=== PATIENT | male | born 1950 | race Caucasian/White ===

== ENCOUNTER 2016-11-11 07:45 | Inpatient (IN) | payer MEDICARE ==
[~2016-11-11] VITALS: Ht 175.3 cm; Wt 98.4 kg
[2016-11-11] MEDS ORDERED: Tubing IV Cassette IV ONE (08:04)
[2016-11-11 08:11] LABS: EOSINOPHILS % (AUTO) 6.5 % (0.0-3.0); LYMPHOCYTES % (AUTO) 20.5 % (20.0-45.0); MEAN CORPUSCULAR HEMOGLOBIN 30.8 PG (27.0-31.0); MEAN CORPUSCULAR HGB CONC 32.5 G/DL (32.0-36.0); MEAN CORPUSCULAR VOLUME 95 FL (80-99); MEAN PLATELET VOLUME 9.5 FL (6.5-10.1); MONOCYTES % (AUTO) 12.5 % (1.0-10.0); NEUTROPHILS % (AUTO) 59.6 % (45.0-75.0); PLATELET COUNT 153 K/UL (150-450); RED BLOOD COUNT 4.78 M/UL (4.70-6.10); RED CELL DISTRIBUTION WIDTH 13.3 % (11.6-14.8); WHITE BLOOD COUNT 7.1 K/UL (4.8-10.8)
[2016-11-11] MEDS ORDERED: Meclizine 25mg tab ORAL ONE (08:15)
[2016-11-11 08:19] LABS: ALANINE AMINOTRANSFERASE 19 U/L (3-41); ANION GAP 17 (5-15); ASPARTATE AMINO TRANSFERASE 18 U/L (5-40); CALCIUM 8.7 mg/dL (8.6-10.2); CARBON DIOXIDE 22 mEQ/L (20-30); CHLORIDE 99 mEQ/L (98-107); GLOMERULAR FILTRATION RATE > 60 mL/min (>60); HEMOLYSIS 2; POTASSIUM 3.8 mEQ/L (3.4-4.9); SODIUM 138 mEQ/L (135-145); TOTAL PROTEIN 6.8 g/dL (6.6-8.7); TROPONIN I < 0.30 ng/mL (<=0.30)
[2016-11-11 08:30] LABS: CKMB < 1.5 ng/mL (< 6.7)
[2016-11-11] MEDS ORDERED: UNOBMED (08:52)
--- NOTE | 2016-11-11 08:52 | Emergency Room Report ---
History of Present Illness General Chief Complaint: Syncope Source: Patient Present Illness HPI 65-year-old male presents to ED complaining of dizziness and syncopal episode. 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 Patient is unsure if he actually passed out. No reported head trauma. Patient notes rash to his arms and legs which is currently being treated by his PMD. Patient was started on new medication a few days ago. Patient does not know the names of the medication. Patient denies any headaches, blurry vision, nausea or vomiting. Chest pain or shortness of breath. Describes room spinning sensation. Per EMS patient is "orthostatic" with drop and BP from sitting to standing. Denies any other associated symptoms Allergies: Coded Allergies: SILVER SULFADIAZINE (Verified Allergy, Unknown, 11/11/16) Patient History Past Medical History: asthma Past Surgical History: none Pertinent Family History: none Social History: Denies: alcohol use, drug use, smoking Immunizations: UTD Reviewed Nursing Documentation: PMH: Agreed, PSxH: Agreed Nursing Documentation-PMH Past Medical History: No History, Except For Hx Asthma: Yes Review of Systems All Other Systems: negative except mentioned in HPI Physical Exam Vital Signs Date Time Temp Pulse Resp B/P Pulse Ox O2 Delivery O2 Flow Rate FiO2 11/11/16 07:48 98.2 75 18 115/87 97 Room Air Sp02 EP Interpretation: reviewed, normal General Appearance: no apparent distress, alert, GCS 15, non-toxic Head: normocephalic, atraumatic Eyes: bilateral eye PERRL, bilateral eye normal inspection ENT: hearing grossly normal, normal pharynx, no angioedema, normal voice Neck: full range of motion, supple/symm/no masses Respiratory: chest non-tender, lungs clear, normal breath sounds, speaking full sentences Cardiovascular #1: regular rate, rhythm, no edema Cardiovascular #2: 2+ carotid (R), 2+ carotid (L), 2+ radial (R), 2+ radial (L) , 2+ dorsalis pedis (R), 2+ dorsalis pedis (L) Gastrointestinal: normal bowel sounds, non tender, soft, non-distended, no guarding, no rebound Rectal: deferred Genitourinary: normal inspection, no CVA tenderness Musculoskeletal: back normal, gait/station normal, normal range of motion, non- tender Neurologic: alert, oriented x3, responsive, motor strength/tone normal, sensory intact, speech normal Psychiatric: judgement/insight normal, memory normal, mood/affect normal, no suicidal/homicidal ideation Reflexes: 3+ bicep (R), 3+ bicep (L), 3+ tricep (R), 3+ tricep (L), 3+ knee (R) , 3+ knee (L) Skin: normal color, no rash, warm/dry, well hydrated Lymphatic: no adenopathy Medical Decision Making Diagnostic Impression: Primary Impression: Syncope Qualified Codes: R55 - Syncope and collapse ER Course Hospital Course 65-year-old M presents ED s/p syncopal episode. Feeling dizzy Differential diagnoses include: NH/unstable angina, arrythmia, dehydration, CVA/ TIA Clinical course Patient placed on stretcher. on property assessment monitor. After initial history and physical I ordered labs, EKG, chest x-ray, IVFs, CT Brain, meclizine labs reviewed- no leukocytosis, hemoglobin/hematocrit ok, electrolytes okay, troponins negative EKG- NSR, no acute changes Chest x-ray- no acute process CT brain-unremarkable Patient given meclizine IV fluids with some improvement however remains dizzy with unsteady gait I reviewed patient's external that history. Patient had been recently prescribed Atarax and Benadryl for a rash. Unclear whether patient is taking both medications at this time because he does not know the names of the medications. Could be polypharmacy. Case discussed with Dr. Vasquez and he agreed to accept the patient to his service for further care and support I. I feel this is a highly complex case requiring extensive working including EKG/Rhythm strip, Xray/CT/US, Blood/urine lab work, repeat exams while in ED, and administration of strong opiates/narcotics for pain control, admission to hospital or close patient follow up. Diagnosis - syncope admitted to telemetry in serious condition Labs Test 11/11/16 07:50 White Blood Count 7.1 K/UL (4.8-10.8) Red Blood Count 4.78 M/UL (4.70-6.10) Hemoglobin 14.7 G/DL (14.2-18.0) Hematocrit 45.2 % (42.0-52.0) Mean Corpuscular Volume 95 FL (80-99) Mean Corpuscular Hemoglobin 30.8 PG (27.0-31.0) Mean Corpuscular Hemoglobin Concent 32.5 G/DL (32.0-36.0) Red Cell Distribution Width 13.3 % (11.6-14.8) Platelet Count 153 K/UL (150-450) Mean Platelet Volume 9.5 FL (6.5-10.1) Neutrophils (%) (Auto) 59.6 % (45.0-75.0) Lymphocytes (%) (Auto) 20.5 % (20.0-45.0) Monocytes (%) (Auto) 12.5 % (1.0-10.0) Eosinophils (%) (Auto) 6.5 % (0.0-3.0) Basophils (%) (Auto) 1.0 % (0.0-2.0) Sodium Level 138 mEQ/L (135-145) Potassium Level 3.8 mEQ/L (3.4-4.9) Chloride Level 99 mEQ/L (98-107) Carbon Dioxide Level 22 mEQ/L (20-30) Anion Gap 17 (5-15) Blood Urea Nitrogen 12 mg/dL (7-23) Creatinine 1.0 mg/dL (0.7-1.2) Estimat Glomerular Filtration Rate > 60 mL/min (>60) Glucose Level 175 mg/dL (74-106) Calcium Level 8.7 mg/dL (8.6-10.2) Total Bilirubin 0.5 mg/dL (0.0-1.2) Aspartate Amino Transf (AST/SGOT) 18 U/L (5-40) Alanine Aminotransferase (ALT/SGPT) 19 U/L (3-41) Alkaline Phosphatase 64 U/L (40-129) Total Creatine Kinase 81 U/L (38-174) Creatine Kinase MB < 1.5 ng/mL (< 6.7) Creatine Kinase MB Relative Index Troponin I < 0.30 ng/mL (<=0.30) Pro-B-Type Natriuretic Peptide 157 pg/mL (0-125) Total Protein 6.8 g/dL (6.6-8.7) Albumin 3.5 g/dL (3.5-5.2) Globulin 3.3 g/dL Albumin/Globulin Ratio 1.0 (1.0-2.7) EKG Diagnostic Results Rate: normal Rhythm: NSR ST Segments: no acute changes ASA given to the pt in ED: No Rhythm Strip Diag. Results EP Interpretation: yes Rhythm: NSR, no PVC's, no ectopy Chest X-Ray Diagnostic Results EP Interpretation: Yes Findings: no consolidation, no effusion, no pneumothorax, no acute cardiopulmonary disease Number of Views: 1 CT/MRI/US Diagnostic Results CT/MRI/US Diagnostic Results : Imaging Test Ordered: CT head Impression no acute process Last Vital Signs Date Time Temp Pulse Resp B/P Pulse Ox O2 Delivery O2 Flow Rate FiO2 11/11/16 07:48 98.2 75 18 115/87 97 Room Air Status: improved Disposition: ADMITTED INPATIENT Condition: Serious Referrals: NOT CHOSEN ROGE/,REFERRING (PCP) IRVING MAO M.D. Nov 11, 2016 08:52
[2016-11-11 09:00] VITALS: BP 105/66
--- NOTE | 2016-11-11 10:20 | Diagnostic Imaging Report ---
Indication: Dizziness Technique: Contiguous 5 mm thick transaxial imaging of the head obtained in a Siemens Sensation [address] scanner. Soft tissue and bone windows generated. Total Dose length Product (DLP): [address] Dose Index Volume (CTDIvol): 70.38 mGy Comparison: none Findings: There is mild prominence of the ventricles, basal cisterns, and cerebral sulci consistent with atrophy. Mild, nonspecific, white matter hypoattenuation is noted throughout the brain consistent with chronic small vessel disease. There is no midline shift, edema, acute hemorrhage, mass effect, or abnormal extra-axial fluid collections. Bones and extra osseous soft tissues are unremarkable. There is minimal mucosal thickening demonstrated within the ethmoid sinus consistent with sinusitis. Impression: No acute intracranial bleed, mass effect or edema. Mild atrophy of the brain. Nonspecific white matter hypoattenuation probably due to chronic small vessel disease. Sinusitis The CT scanner at [facility] is accredited by the [employer] and the scans are performed using protocols designed to limit radiation exposure to as low as reasonably achievable to attain images of sufficient resolution adequate for diagnostic evaluation.
[2016-11-11 11:28] VITALS: BP 143/89
--- NOTE | 2016-11-11 11:59 | Diagnostic Imaging Report ---
Indication: Chest Pain Comparison: None A single view chest radiograph was obtained. Findings: No definite infiltrate or pulmonary vascular congestion identified. The heart is enlarged. There is minimal basilar atelectasis. The aorta is mildly enlarged consistent with atherosclerotic vascular disease. The bones are osteopenic. Impression: No acute disease
[2016-11-11] MEDS ORDERED: BENADRYL25 M3 PO (12:57)
[2016-11-11] MEDS ORDERED: OMEPRAZOLE40 M1 ORAL (12:57)
[2016-11-11] MEDS ORDERED: CEPHALEXIN500 MG ORAL (12:57)
[2016-11-11] MEDS ORDERED: MONTELUKAST SOD10 MG ORAL (12:57)
[2016-11-11] MEDS ORDERED: Mylanta II UD 30ml ORAL PRN (15:00)
[2016-11-11] MEDS ORDERED: LORazepam Inj 2mg/ml 1ml IV PRN (15:00)
[2016-11-11] MEDS ORDERED: Miralax 17gm pkt ORAL PRN (15:00)
[2016-11-11] MEDS ORDERED: Nitroglycerin Subl 0.4mg tab (Bottle Of 25) SL PRN (15:00)
[2016-11-11] MEDS ORDERED: Morphine Sulfate 2mg/ml Inj IVP PRN (15:00)
[2016-11-11 16:00] VITALS: BP 124/78
[2016-11-11 20:00] VITALS: BP 114/74
[2016-11-11] MEDS: DuoNeb 0.5-3(2.5)mg/3ml neb HHN PRN (20:02)
--- NOTE | 2016-11-11 21:04 | Cardiology Progress Note ---
Assessment/Plan Assessment/Plan [id number] Objective Last 24 Hour Vital Signs Date Time Temp Pulse Resp B/P Pulse Ox O2 Delivery O2 Flow Rate FiO2 11/11/16 20:13 78 18 98 Room Air 21 11/11/16 20:03 74 20 Room Air 21 11/11/16 20:03 21 11/11/16 20:02 74 20 95 Room Air 21 11/11/16 20:00 97.1 85 21 114/74 97 Room Air 11/11/16 16:00 97.1 80 20 124/78 95 11/11/16 12:00 75 11/11/16 11:28 96.5 80 18 143/89 97 Room Air 11/11/16 11:02 98.2 79 18 105/66 100 Room Air 11/11/16 09:00 79 18 105/66 100 Room Air 11/11/16 07:48 98.2 75 18 115/87 97 Room Air Laboratory Tests Test 11/11/16 07:50 White Blood Count 7.1 K/UL (4.8-10.8) Red Blood Count 4.78 M/UL (4.70-6.10) Hemoglobin 14.7 G/DL (14.2-18.0) Hematocrit 45.2 % (42.0-52.0) Mean Corpuscular Volume 95 FL (80-99) Mean Corpuscular Hemoglobin 30.8 PG (27.0-31.0) Mean Corpuscular Hemoglobin Concent 32.5 G/DL (32.0-36.0) Red Cell Distribution Width 13.3 % (11.6-14.8) Platelet Count 153 K/UL (150-450) Mean Platelet Volume 9.5 FL (6.5-10.1) Neutrophils (%) (Auto) 59.6 % (45.0-75.0) Lymphocytes (%) (Auto) 20.5 % (20.0-45.0) Monocytes (%) (Auto) 12.5 % (1.0-10.0) H Eosinophils (%) (Auto) 6.5 % (0.0-3.0) H Basophils (%) (Auto) 1.0 % (0.0-2.0) Sodium Level 138 mEQ/L (135-145) Potassium Level 3.8 mEQ/L (3.4-4.9) Chloride Level 99 mEQ/L (98-107) Carbon Dioxide Level 22 mEQ/L (20-30) Anion Gap 17 (5-15) H Blood Urea Nitrogen 12 mg/dL (7-23) Creatinine 1.0 mg/dL (0.7-1.2) Estimat Glomerular Filtration Rate > 60 mL/min (>60) Glucose Level 175 mg/dL (74-106) H Calcium Level 8.7 mg/dL (8.6-10.2) Total Bilirubin 0.5 mg/dL (0.0-1.2) Aspartate Amino Transf (AST/SGOT) 18 U/L (5-40) Alanine Aminotransferase (ALT/SGPT) 19 U/L (3-41) Alkaline Phosphatase 64 U/L (40-129) Total Creatine Kinase 81 U/L (38-174) Creatine Kinase MB < 1.5 ng/mL (< 6.7) Creatine Kinase MB Relative Index Troponin I < 0.30 ng/mL (<=0.30) Pro-B-Type Natriuretic Peptide 157 pg/mL (0-125) H Total Protein 6.8 g/dL (6.6-8.7) Albumin 3.5 g/dL (3.5-5.2) Globulin 3.3 g/dL Albumin/Globulin Ratio 1.0 (1.0-2.7) RARON MCFARLAND Nov 11, 2016 21:04
[2016-11-11] MEDS: Heparin 5000 units/ml inj SUBQ SCH (21:17)
[2016-11-12] VITALS: BP 134/82
[2016-11-12 04:00] VITALS: BP 134/88
--- NOTE | 2016-11-12 05:48 | Consultation ---
DATE OF CONSULTATION: 11/11/2016 REFERRING PHYSICIAN: Alejandra Vasquez M.D. REASON FOR CONSULT: Syncope. HISTORY OF PRESENT ILLNESS: This is a 65-year-old gentleman, who has had a history of rash for approximately three weeks. He has been evaluated by his primary care doctor and allergic reaction has been felt to be a possibility. The patient wants to make an appointment with Dermatology and received some allergy medication including Solu-Medrol, and was recently as of this morning started on three new medications. Apparently, at work today, he started feeling heat from the inside, sat down and felt like he was going to pass out. He found that he had loss of some consciousness and was apparently told that he was shaking. Paramedics were summoned, took the patient to the emergency room. When he stood up, he was wobbly. The patient was brought to the emergency room here. He does not have any chest pain. He does not have any shortness of breath. No PND. No orthopnea. No palpitations. He really does not feel dizzy or lightheaded when he sits up, except for that episode today. He has not had any diarrhea. No bloody stools or black tarry stools. PAST MEDICAL HISTORY: Positive for possibly some high cholesterol. He has a history of asthma. No heart attack. No cancer. No stroke. No hepatitis or tuberculosis. No kidney problems, liver problems, thyroid problems, anemia, or arthritis. ALLERGIES: He is allergic to several medications including silver sulfadiazine. SOCIAL HISTORY: He does not smoke or drink alcoholic beverages. 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 REVIEW OF SYSTEMS: Gastrointestinal: He has had occasional diarrhea and occasional constipation. None recently. No bloody stools or black tarry stools. Genitourinary: Negative. Pulmonary: Has coughing or wheezing. Constitutional: Negative. Neurologic: Negative. PHYSICAL EXAMINATION: VITAL SIGNS: On arrival to the emergency room, blood pressure 115/87, and his blood pressure most recently 114/74, temperature 97.1 degrees and respirations of 85. GENERAL: Shows him to be an elderly gentleman, in no apparent respiratory distress. NECK: Supple. No jugular venous distention. LUNGS: Clear to auscultation and percussion except for some end-expiratory wheezes. CARDIAC: Regular rate and rhythm. No heaves, thrills, gallops, or rubs. ABDOMEN: Soft and nontender. Positive bowel sounds. EXTREMITIES: There is no edema. He has a maculopapular rash on his upper extremities and lower extremities, erythematous base. LABORATORY AND DIAGNOSTIC DATA: A head CT was performed in the emergency room that shows no acute intracranial mass effect, mild atrophy, nonspecific white matter, and sinusitis. Chest x-ray performed in the emergency room shows no acute disease. Laboratories, sodium is 138, potassium 3.8, chloride 99, bicarbonate 22, BUN 12, creatinine 1.2, and glucose of 175. Troponin is less than 0.3. ProBNP is only 157. Liver function tests are otherwise unremarkable. Electrocardiogram normal sinus rhythm. ASSESSMENT AND PLAN: 1. Syncope. 2. Dermatitis. 3. Asthma history. This patient was seen in cardiac consultation. The etiology of syncope is not yet apparent. The patient will have orthostatic vitals checked. He will have laboratories followed up. Intravenous fluids will be administered in terms of normal saline. He has been started on three new medications, the name of which he is not sure about. He will try to obtain the medication list from his car to see if that may be a contributing factor to his symptoms of syncope or near syncope. Further, an echocardiogram, serial enzymes and EKG will be obtained as well. Fidel Mehta M.D. DR: LAURYN JOB#: [id number] CC:
[2016-11-12 08:07] VITALS: BP 123/88
[2016-11-12 08:21] LABS: BASOPHILS % (AUTO) 1.1 % (0.0-2.0); EOSINOPHILS % (AUTO) 8.3 % (0.0-3.0); LYMPHOCYTES % (AUTO) 22.3 % (20.0-45.0); MEAN CORPUSCULAR HEMOGLOBIN 31.3 PG (27.0-31.0); MEAN CORPUSCULAR HGB CONC 32.8 G/DL (32.0-36.0); MEAN CORPUSCULAR VOLUME 95 FL (80-99); MEAN PLATELET VOLUME 8.3 FL (6.5-10.1); MONOCYTES % (AUTO) 11.6 % (1.0-10.0); NEUTROPHILS % (AUTO) 56.7 % (45.0-75.0); PLATELET COUNT 137 K/UL (150-450); RED BLOOD COUNT 4.66 M/UL (4.70-6.10); RED CELL DISTRIBUTION WIDTH 13.5 % (11.6-14.8); WHITE BLOOD COUNT 4.8 K/UL (4.8-10.8)
[2016-11-12 08:29] LABS: PROTHROMBIN TIME 10.5 SEC (9.30-11.50)
[2016-11-12 08:47] LABS: TROPONIN I < 0.30 ng/mL (<=0.30)
[2016-11-12 08:54] LABS: ALANINE AMINOTRANSFERASE 21 U/L (3-41); ALBUMIN/GLOBULIN RATIO 1.1 (1.0-2.7); ANION GAP 16 (5-15); ASPARTATE AMINO TRANSFERASE 20 U/L (5-40); CALCIUM 8.6 mg/dL (8.6-10.2); CARBON DIOXIDE 23 mEQ/L (20-30); CHLORIDE 102 mEQ/L (98-107); CHOLESTEROL 200 mg/dL (< 200); CHOLESTEROL/HDL RATIO 6.5 (3.3-4.4); CREATININE 0.8 mg/dL (0.7-1.2); GLOMERULAR FILTRATION RATE > 60 mL/min (>60); HEMOLYSIS 4; LDL CHOLESTEROL (CALC.) 145 mg/dL (60-99); POTASSIUM 4.1 mEQ/L (3.4-4.9); SODIUM 141 mEQ/L (135-145); TOTAL PROTEIN 6.4 g/dL (6.6-8.7)
[2016-11-12] MEDS: Heparin 5000 units/ml inj SUBQ SCH ×2 (09:21→21:00)
--- NOTE | 2016-11-12 11:10 | Cardiology Progress Note ---
Assessment/Plan Assessment/Plan 1. Syncope. 2. Dermatitis. 3. Asthma history 4. mild abn ekg orthostic vialt neg per turner in neg trop neg ekg with t inversion in some lead will have stress test prio to dc pt agreeable would do excrcise cardiolite echo pending Subjective Cardiovascular: Denies: chest pain, lightheadedness Respiratory: Denies: shortness of breath Gastrointestinal/Abdominal: Denies: abdominal pain Genitourinary: Denies: burning Subjective walked to br no problems Objective Last 24 Hour Vital Signs Date Time Temp Pulse Resp B/P Pulse Ox O2 Delivery O2 Flow Rate FiO2 11/12/16 08:07 97.9 94 20 123/88 93 Room Air 11/12/16 07:42 98 20 Room Air 21 11/12/16 05:24 76 11/12/16 04:05 58 75 11/12/16 04:00 51 11/12/16 04:00 97.9 51 20 134/88 95 Room Air 11/12/16 00:44 85 86 91 11/12/16 00:00 98.1 85 20 134/82 95 Room Air 11/12/16 00:00 85 11/11/16 20:13 78 18 98 Room Air 21 11/11/16 20:03 74 20 Room Air 21 11/11/16 20:03 21 11/11/16 20:02 74 20 95 Room Air 21 11/11/16 20:00 89 11/11/16 20:00 97.1 85 21 114/74 97 Room Air 11/11/16 16:00 80 11/11/16 16:00 97.1 80 20 124/78 95 11/11/16 12:00 75 11/11/16 11:28 96.5 80 18 143/89 97 Room Air General Appearance: no apparent distress, alert Rhythm: NSR Cardiovascular: normal rate, regular rhythm Respiratory/Chest: chest wall non-tender, lungs clear Abdomen: normal bowel sounds, non tender, soft Extremities: no swelling Intake and Output 11/11/16 11/12/16 19:00 07:00 Intake Total 760 ml 600 ml Balance 760 ml 600 ml Intake Oral 260 ml IV Total 500 ml 600 ml # Voids 1 Laboratory Tests Test 11/12/16 07:05 White Blood Count 4.8 K/UL (4.8-10.8) Red Blood Count 4.66 M/UL (4.70-6.10) L Hemoglobin 14.6 G/DL (14.2-18.0) Hematocrit 44.5 % (42.0-52.0) Mean Corpuscular Volume 95 FL (80-99) Mean Corpuscular Hemoglobin 31.3 PG (27.0-31.0) H Mean Corpuscular Hemoglobin Concent 32.8 G/DL (32.0-36.0) Red Cell Distribution Width 13.5 % (11.6-14.8) Platelet Count 137 K/UL (150-450) L Mean Platelet Volume 8.3 FL (6.5-10.1) Neutrophils (%) (Auto) 56.7 % (45.0-75.0) Lymphocytes (%) (Auto) 22.3 % (20.0-45.0) Monocytes (%) (Auto) 11.6 % (1.0-10.0) H Eosinophils (%) (Auto) 8.3 % (0.0-3.0) H Basophils (%) (Auto) 1.1 % (0.0-2.0) Prothrombin Time 10.5 SEC (9.30-11.50) Prothromb Time International Ratio 1.0 (0.9-1.1) Activated Partial Thromboplast Time 25 SEC (23-33) Sodium Level 141 mEQ/L (135-145) Potassium Level 4.1 mEQ/L (3.4-4.9) Chloride Level 102 mEQ/L (98-107) Carbon Dioxide Level 23 mEQ/L (20-30) Anion Gap 16 (5-15) H Blood Urea Nitrogen 13 mg/dL (7-23) Creatinine 0.8 mg/dL (0.7-1.2) Estimat Glomerular Filtration Rate > 60 mL/min (>60) Glucose Level 109 mg/dL (74-106) H Calcium Level 8.6 mg/dL (8.6-10.2) Total Bilirubin 0.6 mg/dL (0.0-1.2) Aspartate Amino Transf (AST/SGOT) 20 U/L (5-40) Alanine Aminotransferase (ALT/SGPT) 21 U/L (3-41) Alkaline Phosphatase 62 U/L (40-129) Troponin I < 0.30 ng/mL (<=0.30) Pro-B-Type Natriuretic Peptide 102 pg/mL (0-125) Total Protein 6.4 g/dL (6.6-8.7) L Albumin 3.4 g/dL (3.5-5.2) L Globulin 3.0 g/dL Albumin/Globulin Ratio 1.1 (1.0-2.7) Triglycerides Level 119 mg/dL (< 150) Cholesterol Level 200 mg/dL (< 200) LDL Cholesterol 145 mg/dL (60-99) H HDL Cholesterol 31 mg/dL (> 60) Cholesterol/HDL Ratio 6.5 (3.3-4.4) H Thyroid Stimulating Hormone (TSH) 1.480 uIU/mL (0.300-4.500) Objective Current Medications Medications (Trade) Dose Ordered Sig/Ronni Route PRN Reason Start Time Stop Time Status Last Admin Dose Admin Acetaminophen (Tylenol) 650 mg Q4H PRN ORAL fever 11/11/16 15:00 12/11/16 14:59 Al Hydroxide/Mg Hydroxide (Mylanta II) 30 ml Q6H PRN ORAL dyspepsia 11/11/16 15:00 12/11/16 14:59 Albuterol/ Ipratropium (DuoNeb 0.5-3(2.5)mg/3ml) 3 ml Q4H PRN HHN Shortness of Breath 11/11/16 15:00 11/16/16 14:59 11/11/16 20:02 Clonidine HCl 0.1 mg 0.1 mg Q4H PRN ORAL SBP > 160 11/11/16 15:00 12/11/16 14:59 Dextrose (Dextrose 50%) STAT PRN IV Hypoglycemia 11/11/16 15:00 12/11/16 14:59 Heparin Sodium (Porcine) (Heparin 5000 units/ml) 5,000 units EVERY 12 HOURS SUBQ 11/11/16 21:00 12/11/16 20:59 11/12/16 09:21 Lorazepam (Ativan 2mg/ml 1ml) 0.5 mg Q4H PRN IV For Anxiety 11/11/16 15:00 11/18/16 14:59 Morphine Sulfate (Morphine Sulfate) 1 mg Q4H PRN IVP For Pain 7-10 11/11/16 15:00 11/18/16 14:59 Nitroglycerin (Ntg) 0.4 mg Q5M X 3 DOSES PRN SL Prn Chest Pain 11/11/16 15:00 12/11/16 14:59 Ondansetron HCl (Zofran) 4 mg Q6H PRN IVP Nausea & Vomiting 11/11/16 15:00 12/11/16 14:59 Polyethylene Glycol (Miralax) 17 gm HSPRN PRN ORAL Constipation 11/11/16 15:00 12/11/16 14:59 Sodium Chloride (Sodium Chloride 1000ml bag) 1,000 ml @ 75 mls/hr [id number] IV 11/11/16 21:30 12/11/16 21:29 11/12/16 10:54 Temazepam (Restoril) 15 mg HSPRN PRN ORAL Insomnia 11/11/16 15:00 11/18/16 14:59 ARRON MCFARLAND Nov 12, 2016 11:10
[2016-11-12 11:27] VITALS: BP 136/90
--- NOTE | 2016-11-12 12:00 | Diagnostic Imaging Report ---
APPROVED REPORT CPT Code: 15388 Vascular Symptoms CVA/TIA: Doppler Spectral Velocity Analysis RightLeft carotid arteries. ECA - Imaging reveals irregular plaque in the external carotid artery. The Doppler signal indicates the degree of stenosis is minimal (10-15%) in the external carotid artery. VERTEBRAL - The vertebral artery is patent, without evidence of stenosis or steal. LEFT SIDE: CCA/ECA - Imaging reveals no significant plaque in the common carotid and external carotid arteries. ICA - Imaging reveals irregular plaque in the internal carotid artery. The Doppler signal indicates the degree of stenosis is minimal (20%) in the internal carotid artery. VERTEBRAL - The vertebral artery is patent, without evidence of stenosis or steal.
--- NOTE | 2016-11-12 14:25 | History and Physical ---
History of Present Illness General Date patient seen: Nov 12, 2016 Reason for Hospitalization: Syncope Present Illness HPI 65-year-old male with hx of asthma and chronic skin disease, presents to ED complaining of dizziness and syncopal episode. Patient is unsure if he actually passed out. No reported head trauma. Patient was started on new medication a few days ago for his skin condition. Patient does not know the names of the medication. Patient denies any headaches, blurry vision, nausea or vomiting. Chest pain or shortness of breath. Describes room spinning sensation. Per EMS patient is "orthostatic" with drop and BP from sitting to standing. Denies any other associated symptoms. Allergies: Coded Allergies: SILVER SULFADIAZINE (Verified Allergy, Unknown, 11/11/16) Medication History Scheduled Cephalexin* (Keflex*), 500 MG ORAL THREE TIMES A DAY, (Reported) Diphenhydramine HCl (Benadryl), 50 MG PO TWICE A DAY, (Reported) Montelukast Sodium* (Montelukast Sodium*), 10 MG ORAL DAILY, (Reported) Omeprazole (Omeprazole), 40 MG ORAL DAILY, (Reported) Miscellaneous Medications Unable to Obtain Medications (Unable To Obtain Meds), (Reported) Patient History Healthcare decision maker pt alert and oriented Resuscitation status Full Code Advanced Directive on File Past Medical/Surgical History Past Medical/Surgical History: (1) History of asthma (2) Dermatitis Social History Social History: (1) Dermatitis Review of Systems Constitutional: Reports: weakness Eye: Reports: no symptoms Respiratory: Reports: no symptoms Cardiovascular: Reports: no symptoms Skin: Reports: lesions Psychiatric: Reports: no symptoms Neurological: Reports: no symptoms Physical Exam General Appearance: WD/WN Lines, tubes and drains: peripheral, central line HEENT: normocephalic, atraumatic Neck: non-tender, normal alignment Respiratory/Chest: chest wall non-tender, lungs clear Breasts: no masses Cardiovascular/Chest: normal peripheral pulses Abdomen: normal bowel sounds, non tender Last 24 Hour Vital Signs Date Time Temp Pulse Resp B/P Pulse Ox O2 Delivery O2 Flow Rate FiO2 11/12/16 12:00 76 11/12/16 11:27 97.9 80 20 136/90 94 Room Air 11/12/16 08:07 97.9 94 20 123/88 93 Room Air 11/12/16 08:00 91 11/12/16 07:42 98 20 Room Air 21 11/12/16 05:24 76 11/12/16 04:05 58 75 11/12/16 04:00 51 11/12/16 04:00 97.9 51 20 134/88 95 Room Air 11/12/16 00:44 85 86 91 11/12/16 00:00 98.1 85 20 134/82 95 Room Air 11/12/16 00:00 85 11/11/16 20:13 78 18 98 Room Air 21 11/11/16 20:03 74 20 Room Air 21 11/11/16 20:03 21 11/11/16 20:02 74 20 95 Room Air 21 11/11/16 20:00 89 11/11/16 20:00 97.1 85 21 114/74 97 Room Air 11/11/16 16:00 80 11/11/16 16:00 97.1 80 20 124/78 95 Intake and Output 11/11/16 11/12/16 18:59 06:59 Intake Total 760 ml 525 ml Balance 760 ml 525 ml Intake Oral 260 ml IV Total 500 ml 525 ml # Voids 1 Laboratory Tests Test 11/12/16 07:05 White Blood Count 4.8 K/UL (4.8-10.8) Red Blood Count 4.66 M/UL (4.70-6.10) L Hemoglobin 14.6 G/DL (14.2-18.0) Hematocrit 44.5 % (42.0-52.0) Mean Corpuscular Volume 95 FL (80-99) Mean Corpuscular Hemoglobin 31.3 PG (27.0-31.0) H Mean Corpuscular Hemoglobin Concent 32.8 G/DL (32.0-36.0) Red Cell Distribution Width 13.5 % (11.6-14.8) Platelet Count 137 K/UL (150-450) L Mean Platelet Volume 8.3 FL (6.5-10.1) Neutrophils (%) (Auto) 56.7 % (45.0-75.0) Lymphocytes (%) (Auto) 22.3 % (20.0-45.0) Monocytes (%) (Auto) 11.6 % (1.0-10.0) H Eosinophils (%) (Auto) 8.3 % (0.0-3.0) H Basophils (%) (Auto) 1.1 % (0.0-2.0) Prothrombin Time 10.5 SEC (9.30-11.50) Prothromb Time International Ratio 1.0 (0.9-1.1) Activated Partial Thromboplast Time 25 SEC (23-33) Sodium Level 141 mEQ/L (135-145) Potassium Level 4.1 mEQ/L (3.4-4.9) Chloride Level 102 mEQ/L (98-107) Carbon Dioxide Level 23 mEQ/L (20-30) Anion Gap 16 (5-15) H Blood Urea Nitrogen 13 mg/dL (7-23) Creatinine 0.8 mg/dL (0.7-1.2) Estimat Glomerular Filtration Rate > 60 mL/min (>60) Glucose Level 109 mg/dL (74-106) H Calcium Level 8.6 mg/dL (8.6-10.2) Total Bilirubin 0.6 mg/dL (0.0-1.2) Aspartate Amino Transf (AST/SGOT) 20 U/L (5-40) Alanine Aminotransferase (ALT/SGPT) 21 U/L (3-41) Alkaline Phosphatase 62 U/L (40-129) Troponin I < 0.30 ng/mL (<=0.30) Pro-B-Type Natriuretic Peptide 102 pg/mL (0-125) Total Protein 6.4 g/dL (6.6-8.7) L Albumin 3.4 g/dL (3.5-5.2) L Globulin 3.0 g/dL Albumin/Globulin Ratio 1.1 (1.0-2.7) Triglycerides Level 119 mg/dL (< 150) Cholesterol Level 200 mg/dL (< 200) LDL Cholesterol 145 mg/dL (60-99) H HDL Cholesterol 31 mg/dL (> 60) Cholesterol/HDL Ratio 6.5 (3.3-4.4) H Thyroid Stimulating Hormone (TSH) 1.480 uIU/mL (0.300-4.500) Height (Feet): 5 Height (Inches): 9.00 Weight (Pounds): 217 Medications Current Medications Medications (Trade) Dose Ordered Sig/Ronni Route PRN Reason Start Time Stop Time Status Last Admin Dose Admin Acetaminophen (Tylenol) 650 mg Q4H PRN ORAL fever 11/11/16 15:00 12/11/16 14:59 Al Hydroxide/Mg Hydroxide (Mylanta II) 30 ml Q6H PRN ORAL dyspepsia 11/11/16 15:00 12/11/16 14:59 Albuterol/ Ipratropium (DuoNeb 0.5-3(2.5)mg/3ml) 3 ml Q4H PRN HHN Shortness of Breath 11/11/16 15:00 11/16/16 14:59 11/11/16 20:02 Clonidine HCl 0.1 mg 0.1 mg Q4H PRN ORAL SBP > 160 11/11/16 15:00 12/11/16 14:59 Dextrose (Dextrose 50%) STAT PRN IV Hypoglycemia 11/11/16 15:00 12/11/16 14:59 Heparin Sodium (Porcine) (Heparin 5000 units/ml) 5,000 units EVERY 12 HOURS SUBQ 11/11/16 21:00 12/11/16 20:59 11/12/16 09:21 Lorazepam (Ativan 2mg/ml 1ml) 0.5 mg Q4H PRN IV For Anxiety 11/11/16 15:00 11/18/16 14:59 Morphine Sulfate (Morphine Sulfate) 1 mg Q4H PRN IVP For Pain 7-10 11/11/16 15:00 11/18/16 14:59 Nitroglycerin (Ntg) 0.4 mg Q5M X 3 DOSES PRN SL Prn Chest Pain 11/11/16 15:00 12/11/16 14:59 Ondansetron HCl (Zofran) 4 mg Q6H PRN IVP Nausea & Vomiting 11/11/16 15:00 12/11/16 14:59 Polyethylene Glycol (Miralax) 17 gm HSPRN PRN ORAL Constipation 11/11/16 15:00 12/11/16 14:59 Sodium Chloride (Sodium Chloride 1000ml bag) 1,000 ml @ 75 mls/hr [id number] IV 11/11/16 21:30 12/11/16 21:29 11/12/16 10:54 Temazepam (Restoril) 15 mg HSPRN PRN ORAL Insomnia 11/11/16 15:00 11/18/16 14:59 Assessment/Plan Problem List: (1) Encephalopathy acute ICD Codes: G93.40 - Encephalopathy, unspecified SNOMED: 5234370 (2) Syncope ICD Codes: R55 - Syncope and collapse SNOMED: 220078815 Qualifiers: Qualified Codes: R55 - Syncope and collapse (3) Dermatitis ICD Codes: L30.9 - Dermatitis, unspecified SNOMED: 56217009 (4) History of asthma ICD Codes: Z87.09 - Personal history of other diseases of the respiratory system SNOMED: 765603471 Assessment/Plan telemetry monitoring echo cardiac evaluation Rheumatology evaluation for possibility of vasculitis or psoriasis. symptomatic treatment TERESA CHO Nov 12, 2016 14:25
--- NOTE | 2016-11-12 14:42 | Cardiology Report ---
APPROVED REPORT EXAM: Two-dimensional and M-mode echocardiogram with Doppler and color Doppler. INDICATION LV function M-Mode DIMENSIONS IVSd0.8 (0.7-1.1cm)Left Atrium (MM)3.8 (1.6-4.0cm) PWd0.9 (0.7-1.1cm)Aortic Root2.6 (2.0-3.7cm) IVSs1.4 cmAortic Cusp Exc.1.6 (1.5-2.0cm) PWs1.3 cm Normal left ventricular chamber size, systolic function and wall motion. Left ventricular ejection fraction estimated to be 60 %. Mild left ventricular hypertrophy by 2-D. No evidence of pericardial effusion. All other cardiac chamber sizes are within normal limits. Focal aortic valve sclerosis with adequate cusp excursion. Thickened mitral valve leaflets with normal excursion. Mitral annulus and aortic root calcification. Pulmonic valve not well visualized. Normal tricuspid valve structure. IVC at normal size with physiologic collapse. A color flow and spectral Doppler study was performed and revealed: Trace to mild mitral regurgitation. Mitral diastolic velocities suggest reduced left ventricular relaxation c/w mild LV diastolic dysfunction (Grade I ). Trace to mild tricuspid regurgitation. Tricuspid systolic velocities suggests peak right ventricular systolic pressure of 30 mmHg.
--- NOTE | 2016-11-12 15:09 | Neurology Progress Note ---
Objective Physical Exam Last Vital Signs Date Time Temp Pulse Resp B/P Pulse Ox O2 Delivery O2 Flow Rate FiO2 11/12/16 12:00 76 11/12/16 11:27 97.9 20 136/90 94 Room Air 11/12/16 07:42 21 Laboratory Tests Test 11/12/16 07:05 White Blood Count 4.8 K/UL (4.8-10.8) Red Blood Count 4.66 M/UL (4.70-6.10) L Hemoglobin 14.6 G/DL (14.2-18.0) Hematocrit 44.5 % (42.0-52.0) Mean Corpuscular Volume 95 FL (80-99) Mean Corpuscular Hemoglobin 31.3 PG (27.0-31.0) H Mean Corpuscular Hemoglobin Concent 32.8 G/DL (32.0-36.0) Red Cell Distribution Width 13.5 % (11.6-14.8) Platelet Count 137 K/UL (150-450) L Mean Platelet Volume 8.3 FL (6.5-10.1) Neutrophils (%) (Auto) 56.7 % (45.0-75.0) Lymphocytes (%) (Auto) 22.3 % (20.0-45.0) Monocytes (%) (Auto) 11.6 % (1.0-10.0) H Eosinophils (%) (Auto) 8.3 % (0.0-3.0) H Basophils (%) (Auto) 1.1 % (0.0-2.0) Prothrombin Time 10.5 SEC (9.30-11.50) Prothromb Time International Ratio 1.0 (0.9-1.1) Activated Partial Thromboplast Time 25 SEC (23-33) Sodium Level 141 mEQ/L (135-145) Potassium Level 4.1 mEQ/L (3.4-4.9) Chloride Level 102 mEQ/L (98-107) Carbon Dioxide Level 23 mEQ/L (20-30) Anion Gap 16 (5-15) H Blood Urea Nitrogen 13 mg/dL (7-23) Creatinine 0.8 mg/dL (0.7-1.2) Estimat Glomerular Filtration Rate > 60 mL/min (>60) Glucose Level 109 mg/dL (74-106) H Calcium Level 8.6 mg/dL (8.6-10.2) Total Bilirubin 0.6 mg/dL (0.0-1.2) Aspartate Amino Transf (AST/SGOT) 20 U/L (5-40) Alanine Aminotransferase (ALT/SGPT) 21 U/L (3-41) Alkaline Phosphatase 62 U/L (40-129) Troponin I < 0.30 ng/mL (<=0.30) Pro-B-Type Natriuretic Peptide 102 pg/mL (0-125) Total Protein 6.4 g/dL (6.6-8.7) L Albumin 3.4 g/dL (3.5-5.2) L Globulin 3.0 g/dL Albumin/Globulin Ratio 1.1 (1.0-2.7) Triglycerides Level 119 mg/dL (< 150) Cholesterol Level 200 mg/dL (< 200) LDL Cholesterol 145 mg/dL (60-99) H HDL Cholesterol 31 mg/dL (> 60) Cholesterol/HDL Ratio 6.5 (3.3-4.4) H Thyroid Stimulating Hormone (TSH) 1.480 uIU/mL (0.300-4.500) Impression/Recommendations Problems: (1) recurrent syncope, prob vaso vagal. (2) History of asthma (3) Dermatitis Status: unchanged Recommendations #[id number] MIHAI FARR Nov 12, 2016 15:09
[2016-11-12 16:00] VITALS: BP 135/85
[2016-11-12] MEDS: ceFAZolin sod 0.5 GM in D5W 55 ML IV SCH ×2 (16:48→22:29)
[2016-11-12] MEDS: Triamcinolone 0.5% Cr 15gm TOPIC SCH ×2 (16:48→19:01)
[2016-11-12 20:00] VITALS: BP 122/75
--- NOTE | 2016-11-12 20:58 | Consultation ---
DATE OF CONSULTATION: 11/12/2016 NEUROLOGICAL CONSULTATION REQUESTED PHYSICIAN: Alejandra Vasquez M.D. HISTORY OF PRESENT ILLNESS: This is a 65 years old gentleman, seen in neurological consultation to evaluate the transient loss of consciousness with "shaking." The patient informed me that yesterday on day of admission, he woke up in the morning feeling fairly well. He noted that his skin rash become more bright red. He become quite concerned. He went to the coffee shop, took a couple of coffee and went to work. While at work sitting and listening to instructions, he started to develop dizziness, patient was described as becoming pale, developing tremors. He has no recollection of this event. He lost consciousness and upon awakening, he was seen by paramedics. He was taken to this hospital. In the field, his blood pressure 119/83, blood sugar 129, heart rate of 94, and respiration 18. The patient was fully awake. He was complaining that he did feel that he is getting asthma attack. He mentioned that if he looks at his skin rash he fainted that as he came around. He was not having any shortness of breath. No chest pain. His orthostatic was negative. He was taken to emergency room, described with vital signs remaining stable. He described as having room spinning sensation. The patient had positive orthostatic findings as per EMS. The patient informs that previously quite healthy. He developed a disseminated skin rash about three weeks ago. He was felt to be allergic. He was allergic to some medication. The patient's treatment included Solu-Medrol, felt initially improvement, but repeated a course of steroids and was not affective. The patient and his now informs me that for many years he has a propensity for transient loss of consciousness when watching someone's blood or when he is getting IV. The patient also indicated that he has limited fluid intake. He is not engaged in any exercises and quite deconditioned and obese. PAST MEDICAL HISTORY: The patient has history of hyperlipidemia, history of bronchial asthma. Denies any other major medical problems. ALLERGIES: Included sulfa drugs and sulfadiazine. MEDICATIONS: Treatment prior to admission included Benadryl, montelukast, and omeprazole. FAMILY HISTORY: Noncontributory. SOCIAL HISTORY: He lives with his . 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 Quite concerned keeping his job, which he needs for financial support. No alcohol. No drug abuse. Nonsmoker. REVIEW OF SYMPTOMS: At this time, the patient is concerned with persistent itching and prominent rash. Denies headache or dizziness. No chest pain. No palpitations. No respiratory problems. Denies abdominal pain or discomfort. No urine or bowel incontinence. PHYSICAL EXAMINATION: GENERAL: A well-developed, moderately obese, deconditioned man, not in acute distress. He is full alert and oriented. MUSCULOSKELETAL: Unremarkable except presence of disseminated rash, prominent in his left lower extremity. MENTAL STATUS: The patient is alert and oriented x3. No evidence of aphasia or apraxia. Cognitive function normal. CRANIAL NERVE II: Pupils both responding to light and accommodation. Extraocular movement intact. No nystagmus. CRANIAL NERVE V: Normal corneal responses. CRANIAL NERVE VII: No facial asymmetry. CRANIAL NERVE VIII: Normal hearing. CRANIAL NERVES IX THROUGH XII: Tongue is in midline. Symmetric palate elevation. MOTOR EXAMINATION: Normal muscle tone. Strength 5/5 in all extremities. No involuntary movement. Deep tendon reflexes 1+ symmetric with downgoing toes on both sides. SENSORY EXAMINATION: Normal to pinprick light touch. Gait not tested, but reported stable. IMPRESSION: 1. Recurrent syncope most likely vasovagal in origin. 2. Orthostatic hypotension, dehydration. 3. History of bronchial asthma. 4. Disseminated allergic rash. 5. Obesity, decondition. RECOMMENDATION: 1. Orthostatic blood pressure recheck. 2. Cardiac assessment for cardiac arrhythmia. 3. Observe for any paroxysmal events, so far the patient had no evidence of epileptogenic activities. 4. We will obtain electroencephalogram to rule out any epileptogenic focus. 5. The patient was encouraged rehydration and further treatment for skin rash as per dermatology. Thank you for allowing me to see this interesting patient in neurological consultation. David Chaudhary M.D. DR: GURVINDER JOB#: [id number] CC:
[2016-11-13] VITALS: BP 133/91
[2016-11-13 04:00] VITALS: BP 161/96
[2016-11-13] MEDS: DuoNeb 0.5-3(2.5)mg/3ml neb HHN PRN (05:45)
[2016-11-13] MEDS: ceFAZolin sod 0.5 GM in D5W 55 ML IV SCH ×2 (06:08→14:22)
[2016-11-13 07:49] VITALS: BP 135/79
[2016-11-13 08:08] LABS: BASOPHILS % (AUTO) 2.3 % (0.0-2.0); EOSINOPHILS % (AUTO) 7.1 % (0.0-3.0); LYMPHOCYTES % (AUTO) 13.2 % (20.0-45.0); MEAN CORPUSCULAR HGB CONC 33.7 G/DL (32.0-36.0); MEAN CORPUSCULAR VOLUME 95 FL (80-99); MEAN PLATELET VOLUME 8.6 FL (6.5-10.1); MONOCYTES % (AUTO) 12.1 % (1.0-10.0); NEUTROPHILS % (AUTO) 65.3 % (45.0-75.0); PLATELET COUNT 128 K/UL (150-450); RED BLOOD COUNT 4.39 M/UL (4.70-6.10); WHITE BLOOD COUNT 5.3 K/UL (4.8-10.8)
[2016-11-13 08:21] LABS: ALANINE AMINOTRANSFERASE 20 U/L (3-41); ALBUMIN/GLOBULIN RATIO 1.1 (1.0-2.7); ANION GAP 14 (5-15); ASPARTATE AMINO TRANSFERASE 19 U/L (5-40); CALCIUM 8.4 mg/dL (8.6-10.2); CARBON DIOXIDE 23 mEQ/L (20-30); CHLORIDE 103 mEQ/L (98-107); CREATININE 0.7 mg/dL (0.7-1.2); CRP QUANT 0.5 mg/dL (< 0.5); GLOMERULAR FILTRATION RATE > 60 mL/min (>60); HEMOLYSIS 4; MAGNESIUM 1.7 mg/dL (1.7-2.5); PHOSPHORUS 1.6 mg/dL (2.5-4.8); POTASSIUM 3.5 mEQ/L (3.4-4.9); SODIUM 140 mEQ/L (135-145); TOTAL PROTEIN 6.1 g/dL (6.6-8.7)
[2016-11-13] MEDS: Triamcinolone 0.5% Cr 15gm TOPIC SCH ×3 (09:08→18:40)
[2016-11-13] MEDS: Heparin 5000 units/ml inj SUBQ SCH ×2 (09:09→20:08)
[2016-11-13 09:50] LABS: ERYTHROCYTE SEDIMENTATION RATE 52 MM/HR (0-20)
[2016-11-13 11:17] VITALS: BP 124/83
--- NOTE | 2016-11-13 15:15 | Pulmonology Progress Note ---
Assessment/Plan Problems: (1) Encephalopathy acute (2) Syncope (3) Dermatitis (4) History of asthma Assessment/Plan stress test ordered echo serial ekg/ troponing Rheuma consult called to rule out vasculitis. Subjective ROS Limited/Unobtainable: No Constitutional: Reports: no symptoms HEENT: Repors: no symptoms Respiratory: Reports: no symptoms Allergies: Coded Allergies: SILVER SULFADIAZINE (Verified Allergy, Unknown, 11/11/16) Objective Last 24 Hour Vital Signs Date Time Temp Pulse Resp B/P Pulse Ox O2 Delivery O2 Flow Rate FiO2 11/13/16 12:00 95 11/13/16 11:25 93 11/13/16 11:20 84 11/13/16 11:17 97.9 92 20 124/83 95 Room Air 11/13/16 11:15 92 11/13/16 08:05 83 20 Room Air 21 11/13/16 07:49 97.9 83 20 135/79 95 Room Air 11/13/16 05:46 92 20 99 Room Air 21 11/13/16 05:46 21 11/13/16 05:45 88 20 98 Room Air 21 11/13/16 05:41 94 96 100 11/13/16 05:00 94 11/13/16 04:00 97.0 94 24 161/96 95 Room Air 11/13/16 00:00 97.9 86 20 133/91 96 Room Air 11/13/16 00:00 80 11/12/16 22:00 80 85 87 11/12/16 20:00 92 11/12/16 20:00 97.8 85 20 122/75 97 Room Air 11/12/16 19:30 88 20 Room Air 21 11/12/16 16:00 84 11/12/16 16:00 97.9 84 21 135/85 95 Room Air Intake and Output 11/12/16 11/13/16 19:00 07:00 Intake Total 1945 ml 730 ml Balance 1945 ml 730 ml Intake Oral 990 ml IV Total 955 ml 730 ml # Voids 6 1 # Bowel Movements 3 General Appearance: WD/WN HEENT: normocephalic, atraumatic Respiratory/Chest: chest wall non-tender, lungs clear, chest wall tender Cardiovascular: normal peripheral pulses, normal rate Abdomen: normal bowel sounds Skin: no rash Neurologic/Psychiatric: 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 grossly normal Laboratory Tests 11/13/16 06:48: White Blood Count 5.3, Red Blood Count 4.39L, Hemoglobin 14.0L, Hematocrit 41.7L , Mean Corpuscular Volume 95, Mean Corpuscular Hemoglobin 32.0H, Mean Corpuscular Hemoglobin Concent 33.7, Red Cell Distribution Width 13.0, Platelet Count 128L, Mean Platelet Volume 8.6, Neutrophils (%) (Auto) 65.3, Lymphocytes ( %) (Auto) 13.2L, Monocytes (%) (Auto) 12.1H, Eosinophils (%) (Auto) 7.1H, Basophils (%) (Auto) 2.3H, Erythrocyte Sedimentation Rate 52H, Sodium Level 140 , Potassium Level 3.5, Chloride Level 103, Carbon Dioxide Level 23, Anion Gap 14 , Blood Urea Nitrogen 10, Creatinine 0.7, Estimat Glomerular Filtration Rate > 60, Glucose Level 125H, Calcium Level 8.4L, Phosphorus Level 1.6L, Magnesium Level 1.7, Total Bilirubin 0.6, Aspartate Amino Transf (AST/SGOT) 19, Alanine Aminotransferase (ALT/SGPT) 20, Alkaline Phosphatase 61, C-Reactive Protein, Quantitative 0.5, Total Protein 6.1L, Albumin 3.3L, Globulin 2.8, Albumin/ Globulin Ratio 1.1 Current Medications Medications (Trade) Dose Ordered Sig/Ronni Route PRN Reason Start Time Stop Time Status Last Admin Dose Admin Acetaminophen (Tylenol) 650 mg Q4H PRN ORAL fever 11/11/16 15:00 12/11/16 14:59 Al Hydroxide/Mg Hydroxide (Mylanta II) 30 ml Q6H PRN ORAL dyspepsia 11/11/16 15:00 12/11/16 14:59 Albuterol/ Ipratropium (DuoNeb 0.5-3(2.5)mg/3ml) 3 ml Q4H PRN HHN Shortness of Breath 11/11/16 15:00 11/16/16 14:59 11/13/16 05:45 Cefazolin Sodium/ Dextrose (Ancef/D5W) 55 ml @ 110 mls/hr Q8HR IV 11/12/16 17:00 11/19/16 16:59 11/13/16 14:22 Clonidine HCl 0.1 mg 0.1 mg Q4H PRN ORAL SBP > 160 11/11/16 15:00 12/11/16 14:59 Dextrose (Dextrose 50%) STAT PRN IV Hypoglycemia 11/11/16 15:00 12/11/16 14:59 Heparin Sodium (Porcine) (Heparin 5000 units/ml) 5,000 units EVERY 12 HOURS SUBQ 11/11/16 21:00 12/11/16 20:59 11/13/16 09:09 Lorazepam (Ativan 2mg/ml 1ml) 0.5 mg Q4H PRN IV For Anxiety 11/11/16 15:00 11/18/16 14:59 Morphine Sulfate (Morphine Sulfate) 1 mg Q4H PRN IVP For Pain 7-10 11/11/16 15:00 11/18/16 14:59 Nitroglycerin (Ntg) 0.4 mg Q5M X 3 DOSES PRN SL Prn Chest Pain 11/11/16 15:00 12/11/16 14:59 Ondansetron HCl (Zofran) 4 mg Q6H PRN IVP Nausea & Vomiting 11/11/16 15:00 12/11/16 14:59 Polyethylene Glycol (Miralax) 17 gm HSPRN PRN ORAL Constipation 11/11/16 15:00 12/11/16 14:59 Sodium Chloride (Sodium Chloride 1000ml bag) 1,000 ml @ 75 mls/hr [id number] IV 11/11/16 21:30 12/11/16 21:29 11/13/16 01:26 Temazepam (Restoril) 15 mg HSPRN PRN ORAL Insomnia 11/11/16 15:00 11/18/16 14:59 Triamcinolone Acetonide 1 applic 1 applic THREE TIMES A DAY TOPIC 11/12/16 14:15 12/12/16 14:14 11/13/16 09:08 TERESA CHO Nov 13, 2016 15:15
--- NOTE | 2016-11-13 15:54 | Cardiology Report ---
APPROVED REPORT EKG Measurement Heart [id number] Normal sinus rhythm Left posterior fascicular block Abnormal QRS-T angle, consider primary T wave abnormality Abnormal ECG
[2016-11-13 16:00] VITALS: BP 134/77
--- NOTE | 2016-11-13 16:42 | Diagnostic Imaging Report ---
Indication: chest pain Technique: The study was conducted under the supervision of a crm solution architect. Exercise on a treadmill utilizing (Kirk protocol) followed by intravenous administration of 31 mCi of technetium 99m Myoview was performed. Three plane SPECT imaging of the heart was then performed. A resting study was performed as part of the one-day protocol with 11 mCi of technetium 99m myoview injected intravenously at that time. Three plane SPECT imaging of the heart was obtained. Comparison: None Clinical data: The patient exercised for 4 minutes and stopped due to fatigue. There were no EKG changes. Resting artery: 101. Peak exercise heart 126 (82% of maximal predicted heart rate). Resting BP: 158-110. Peak exercise blood pressure: 158/110 1. Clinical response: Non ischemic 2. Electrocardiographic response: Non ischemic Findings: The myocardial perfusion scan demonstrates no significant abnormalities. No fixed or reversible perfusion defects are demonstrated. LVEF estimated at 71%. Impression: Negative myocardial perfusion scan. Note: The level of exercise achieved was less than optimal as discussed above.
[2016-11-13 20:00] VITALS: BP 145/82
--- NOTE | 2016-11-13 20:44 | Cardiology Progress Note ---
Assessment/Plan Assessment/Plan 1. Syncope. 2. Dermatitis. 3. Asthma history 4. mild abn ekg orthostic vials neg per staffing rn neg trop neg stress test neg ok to dc home Subjective Cardiovascular: Denies: chest pain, irregular heart rate Respiratory: Denies: shortness of breath Gastrointestinal/Abdominal: Denies: abdominal pain Genitourinary: Denies: burning Objective Last 24 Hour Vital Signs Date Time Temp Pulse Resp B/P Pulse Ox O2 Delivery O2 Flow Rate FiO2 11/13/16 20:00 97.9 89 21 145/82 96 Room Air 11/13/16 19:35 87 20 Room Air 11/13/16 16:00 97.9 60 20 134/77 98 Room Air 11/13/16 16:00 87 11/13/16 12:00 95 11/13/16 11:25 93 11/13/16 11:20 84 11/13/16 11:17 97.9 92 20 124/83 95 Room Air 11/13/16 11:15 92 11/13/16 08:05 83 20 Room Air 21 11/13/16 07:49 97.9 83 20 135/79 95 Room Air 11/13/16 05:46 92 20 99 Room Air 21 11/13/16 05:46 21 11/13/16 05:45 88 20 98 Room Air 21 11/13/16 05:41 94 96 100 11/13/16 05:00 94 11/13/16 04:00 97.0 94 24 161/96 95 Room Air 11/13/16 00:00 97.9 86 20 133/91 96 Room Air 11/13/16 00:00 80 11/12/16 22:00 80 85 87 General Appearance: no apparent distress, alert Neck: supple Cardiovascular: normal rate, regular rhythm Respiratory/Chest: normal breath sounds Abdomen: non tender, soft Extremities: normal range of motion, non-tender Intake and Output 11/12/16 11/13/16 19:00 07:00 Intake Total 1945 ml 730 ml Balance 1945 ml 730 ml Intake Oral 990 ml IV Total 955 ml 730 ml # Voids 6 1 # Bowel Movements 3 Laboratory Tests Test 11/13/16 06:48 White Blood Count 5.3 K/UL (4.8-10.8) Red Blood Count 4.39 M/UL (4.70-6.10) L Hemoglobin 14.0 G/DL (14.2-18.0) L Hematocrit 41.7 % (42.0-52.0) L Mean Corpuscular Volume 95 FL (80-99) Mean Corpuscular Hemoglobin 32.0 PG (27.0-31.0) H Mean Corpuscular Hemoglobin Concent 33.7 G/DL (32.0-36.0) Red Cell Distribution Width 13.0 % (11.6-14.8) Platelet Count 128 K/UL (150-450) L Mean Platelet Volume 8.6 FL (6.5-10.1) Neutrophils (%) (Auto) 65.3 % (45.0-75.0) Lymphocytes (%) (Auto) 13.2 % (20.0-45.0) L Monocytes (%) (Auto) 12.1 % (1.0-10.0) H Eosinophils (%) (Auto) 7.1 % (0.0-3.0) H Basophils (%) (Auto) 2.3 % (0.0-2.0) H Erythrocyte Sedimentation Rate 52 MM/HR (0-20) H Sodium Level 140 mEQ/L (135-145) Potassium Level 3.5 mEQ/L (3.4-4.9) Chloride Level 103 mEQ/L (98-107) Carbon Dioxide Level 23 mEQ/L (20-30) Anion Gap 14 (5-15) Blood Urea Nitrogen 10 mg/dL (7-23) Creatinine 0.7 mg/dL (0.7-1.2) Estimat Glomerular Filtration Rate > 60 mL/min (>60) Glucose Level 125 mg/dL (74-106) H Calcium Level 8.4 mg/dL (8.6-10.2) L Phosphorus Level 1.6 mg/dL (2.5-4.8) L Magnesium Level 1.7 mg/dL (1.7-2.5) Total Bilirubin 0.6 mg/dL (0.0-1.2) Aspartate Amino Transf (AST/SGOT) 19 U/L (5-40) Alanine Aminotransferase (ALT/SGPT) 20 U/L (3-41) Alkaline Phosphatase 61 U/L (40-129) C-Reactive Protein, Quantitative 0.5 mg/dL (< 0.5) Total Protein 6.1 g/dL (6.6-8.7) L Albumin 3.3 g/dL (3.5-5.2) L Globulin 2.8 g/dL Albumin/Globulin Ratio 1.1 (1.0-2.7) Objective Current Medications Medications (Trade) Dose Ordered Sig/Ronni Route PRN Reason Start Time Stop Time Status Last Admin Dose Admin Acetaminophen (Tylenol) 650 mg Q4H PRN ORAL fever 11/11/16 15:00 12/11/16 14:59 Al Hydroxide/Mg Hydroxide (Mylanta II) 30 ml Q6H PRN ORAL dyspepsia 11/11/16 15:00 12/11/16 14:59 Albuterol/ Ipratropium (DuoNeb 0.5-3(2.5)mg/3ml) 3 ml Q4H PRN HHN Shortness of Breath 11/11/16 15:00 11/16/16 14:59 11/11/16 20:02 Clonidine HCl 0.1 mg 0.1 mg Q4H PRN ORAL SBP > 160 11/11/16 15:00 12/11/16 14:59 Dextrose (Dextrose 50%) STAT PRN IV Hypoglycemia 11/11/16 15:00 12/11/16 14:59 Heparin Sodium (Porcine) (Heparin 5000 units/ml) 5,000 units EVERY 12 HOURS SUBQ 11/11/16 21:00 12/11/16 20:59 11/12/16 09:21 Lorazepam (Ativan 2mg/ml 1ml) 0.5 mg Q4H PRN IV For Anxiety 11/11/16 15:00 11/18/16 14:59 Morphine Sulfate (Morphine Sulfate) 1 mg Q4H PRN IVP For Pain 7-10 11/11/16 15:00 11/18/16 14:59 Nitroglycerin (Ntg) 0.4 mg Q5M X 3 DOSES PRN SL Prn Chest Pain 11/11/16 15:00 12/11/16 14:59 Ondansetron HCl (Zofran) 4 mg Q6H PRN IVP Nausea & Vomiting 11/11/16 15:00 12/11/16 14:59 Polyethylene Glycol (Miralax) 17 gm HSPRN PRN ORAL Constipation 11/11/16 15:00 12/11/16 14:59 Sodium Chloride (Sodium Chloride 1000ml bag) 1,000 ml @ 75 mls/hr [id number] IV 11/11/16 21:30 12/11/16 21:29 11/12/16 10:54 Temazepam (Restoril) 15 mg HSPRN PRN ORAL Insomnia 11/11/16 15:00 11/18/16 14:59 ARRON MCFARLAND Nov 13, 2016 20:44
[2016-11-13] MEDS: ceFAZolin sod 1 GM in D5W 55 ML IVP SCH (22:43)
[2016-11-14] VITALS: BP 141/86
--- NOTE | 2016-11-14 01:08 | Electroencephalogram ---
DATE OF PROCEDURE: 11/12/2016 ELECTROENCEPHALOGRAPHY REPORT REQUESTING PHYSICIAN: Alejandra Vasquez M.D. HISTORY: The patient is a 65-year-old man with a history of transient loss of consciousness. EEG was requested to assess on presence of seizure activities. EEG was done using 18 electrodes placed [id number], [id number], according to 10/20 International System. During the recording, the patient was awake, drowsy, asleep, fairly cooperative, normal mentality, and no sedation given prior to the study. Throughout the recording, background activity consists of well regulated, low voltage alpha activities, 8 to 9 cycles per second bilaterally at times, over righted by theta activities bilaterally. No asymmetry from [id number]. No spike or wave activities noted. IMPRESSION: Normal awake stage I sleep EEG with photic stimulation. COMMENT: Absence of paroxysmal event on a single recording does not rule out seizure disorder. David Chaudhary M.D. DR: GURVINDER JOB#: [id number] CC:
[2016-11-14] MEDS: DuoNeb 0.5-3(2.5)mg/3ml neb HHN PRN (03:49)
[2016-11-14 04:00] VITALS: BP 155/84
[2016-11-14] MEDS: ceFAZolin sod 1 GM in D5W 55 ML IVP SCH ×2 (07:20→13:14)
[2016-11-14 08:00] VITALS: BP 131/92
[2016-11-14] MEDS: Triamcinolone 0.5% Cr 15gm TOPIC SCH ×2 (08:12→13:15)
[2016-11-14] MEDS: Heparin 5000 units/ml inj SUBQ SCH (08:13)
[2016-11-14 12:17] VITALS: BP 140/82
--- NOTE | 2016-11-14 15:16 | Pulmonology Progress Note ---
Assessment/Plan Problems: (1) Encephalopathy acute (2) Syncope (3) Dermatitis (4) History of asthma Assessment/Plan echo reviewed serial ekg/ troponing Rheuma consult called to rule out vasculitis. ( apparently not available), outpatient f/u Cardiology recommending discharge. dc home Subjective ROS Limited/Unobtainable: No Constitutional: Reports: no symptoms HEENT: Repors: no symptoms Respiratory: Reports: no symptoms Allergies: Coded Allergies: SILVER SULFADIAZINE (Verified Allergy, Unknown, 11/11/16) Objective Last 24 Hour Vital Signs Date Time Temp Pulse Resp B/P Pulse Ox O2 Delivery O2 Flow Rate FiO2 11/14/16 13:35 85 86 84 11/14/16 12:17 98.4 84 17 140/82 95 Room Air 84 11/14/16 12:00 80 11/14/16 09:22 85 88 94 11/14/16 08:31 66 18 Room Air 21 11/14/16 08:00 97.7 85 18 131/92 95 Room Air 88 11/14/16 08:00 84 11/14/16 07:13 87 90 93 11/14/16 04:00 98.1 87 20 155/84 94 Room Air 11/14/16 03:56 91 20 98 Room Air 11/14/16 03:48 91 20 94 Room Air 11/14/16 03:42 100 11/14/16 00:00 97.5 90 20 141/86 95 Room Air 11/13/16 23:51 66 11/13/16 23:50 87 11/13/16 21:27 60 65 69 11/13/16 20:00 97.9 89 21 145/82 96 Room Air 11/13/16 19:35 87 20 Room Air 11/13/16 19:30 89 11/13/16 16:00 97.9 60 20 134/77 98 Room Air 11/13/16 16:00 87 Intake and Output 11/13/16 11/14/16 19:00 07:00 Intake Total 1045 ml 880 ml Balance 1045 ml 880 ml Intake Oral 240 ml IV Total 805 ml 880 ml # Voids 5 3 # Bowel Movements 2 1 General Appearance: WD/WN HEENT: normocephalic Respiratory/Chest: chest wall non-tender Cardiovascular: normal peripheral pulses Abdomen: normal bowel sounds Genitourinary: normal external genitalia Skin: no rash Current Medications Medications (Trade) Dose Ordered Sig/Ronni Route PRN Reason Start Time Stop Time Status Last Admin Dose Admin Acetaminophen (Tylenol) 650 mg Q4H PRN ORAL fever 11/11/16 15:00 12/11/16 14:59 Al Hydroxide/Mg Hydroxide (Mylanta II) 30 ml Q6H PRN ORAL dyspepsia 11/11/16 15:00 12/11/16 14:59 Albuterol/ Ipratropium (DuoNeb 0.5-3(2.5)mg/3ml) 3 ml Q4H PRN HHN Shortness of Breath 11/11/16 15:00 11/16/16 14:59 11/14/16 03:49 Cefazolin Sodium/ Dextrose (Ancef/D5W) 55 ml @ 110 mls/hr Q8HR IVP 11/13/16 22:00 11/19/16 21:59 11/14/16 13:14 Clonidine HCl (Catapres) 0.1 mg Q4H PRN ORAL SBP > 160 11/11/16 15:00 12/11/16 14:59 Dextrose (Dextrose 50%) STAT PRN IV Hypoglycemia 11/11/16 15:00 12/11/16 14:59 Heparin Sodium (Porcine) (Heparin 5000 units/ml) 5,000 units EVERY 12 HOURS SUBQ 11/11/16 21:00 12/11/16 20:59 11/14/16 08:13 Lorazepam (Ativan 2mg/ml 1ml) 0.5 mg Q4H PRN IV For Anxiety 11/11/16 15:00 11/18/16 14:59 Morphine Sulfate (Morphine Sulfate) 1 mg Q4H PRN IVP For Pain 7-10 11/11/16 15:00 11/18/16 14:59 Nitroglycerin (Ntg) 0.4 mg Q5M X 3 DOSES PRN SL Prn Chest Pain 11/11/16 15:00 12/11/16 14:59 Ondansetron HCl (Zofran) 4 mg Q6H PRN IVP Nausea & Vomiting 11/11/16 15:00 12/11/16 14:59 Polyethylene Glycol (Miralax) 17 gm HSPRN PRN ORAL Constipation 11/11/16 15:00 12/11/16 14:59 Temazepam (Restoril) 15 mg HSPRN PRN ORAL Insomnia 11/11/16 15:00 11/18/16 14:59 Triamcinolone Acetonide 1 applic 1 applic THREE TIMES A DAY TOPIC 11/12/16 14:15 12/12/16 14:14 11/14/16 13:15 TERESA CHO Nov 14, 2016 15:16
[2016-11-14 16:00] VITALS: BP 157/95
[2016-11-14] MEDS ORDERED: Tubing IV Secondary IV ONE (18:16)
--- NOTE | 2016-11-15 11:05 | Discharge Summary ---
Discharge Summary Hospital Course Date of Admission Nov 11, 2016 at 09:45 Date of Discharge Nov 14, 2016 at 18:17 Admitting Diagnosis syncope, dizziness HPI Ryan Patricio is a 65 year old male who was admitted on Nov 11, 2016 at 09:45 for Syncope, Dizziness Hospital Course [id number] Discharge Discharge Disposition Patient was discharged to Home with Home Health(06) Discharge Diagnoses: Serenity Newsome NP Nov 15, 2016 11:05
--- NOTE | 2016-11-15 15:44 | Cardiology Report ---
APPROVED REPORT EKG Measurement Heart [id number] Normal sinus rhythm Normal ECG
--- NOTE | 2016-11-15 22:29 | Discharge Summary 2 SIG ---
DATE OF ADMISSION: 11/11/2016 DATE OF DISCHARGE: 11/14/2016 CONSULTANTS: 1. Fidel Mehta M.D. 2. David Chaudhary M.D. BRIEF HOSPITAL COURSE: The patient is a 65-year-old male with history of asthma and chronic skin disease, presented to ED complaining of dizziness and syncopal episode. Unsure if he actually passed out. There was no reported head trauma. He was recently started on a new medication for his rash with some allergy medications and Solu-Medrol. He felt like he was going to pass out and was shaking. Paramedics were summoned and took the patient to emergency room. Upon evaluation, head CT showed no acute intracranial mass effect with mild atrophy and sinusitis. Chest x-ray showed no acute disease. EKG was in normal sinus rhythm. Dr. Mehta and Dr. Chaudhary were consulted. The patient was admitted to monitored floor for cardiac and neurologic monitoring. He was positive for orthostasis per EMS report. Syncope was assessed to be likely vasovagal in origin. There was no evidence of epileptogenic activities on EEG. Telemetry strips were reviewed and was negative. Cardiac enzymes were likewise negative. Echocardiogram showed ejection fraction of 60% with normal left ventricular size, function, and wall motion with a right ventricular systolic pressure of 30. Carotid duplex scan showed minimal stenosis in the external carotid and internal carotid artery bilaterally. He underwent a nuclear EKG treadmill stress test on 11/13/2016, results were nonischemic. Rheumatology consult was recommended to rule out vasculitis and was advised outpatient followup. He was eventually discharged home. FINAL DIAGNOSES: 1. Syncope, possibly vasovagal in origin. 2. Dermatitis. 3. Asthma. 4. Orthostatic hypotension. 5. Dehydration. 6. Obesity. 7. Diffuse generalized rash secondary to dermatitis present on admission. Alejandra Vasquez M.D. I have been assigned to dictate discharge summary on this account and I was not involved in the patient's management. Serenity Newsome N.P. DR: KIMBERLY JOB#: [id number] CC: KELSEY
== END 2016-11-14 18:17 | disposition home or self-care (01) | DRG 312 ==
LOC: EDBD 07:45 → EMR 08:18 → 2E 09:45 → EDBEDREQ 10:12 → 2E 11:27
DX: I95.1 Orthostatic hypotension (principal); G93.40 Encephalopathy, unspecified; L03.90 Cellulitis, unspecified; E86.0 Dehydration; Z87.09 Personal history of other diseases of the respiratory system; L30.9 Dermatitis, unspecified; J45.909 Unspecified asthma, uncomplicated; E66.9 Obesity, unspecified; Z88.8 Allergy status to other drugs, medicaments and biological substances
CPT/HCPCS: 36415; 70450; 71010; 78452; 80053; 80061; 82550; 82553; 83735; 83880; 84100; 84443; 84484; 85025; 85610; 85651; 85730; 86140; 93005; 93017; 93306; 93880; 94640; 94664; 95819; J7620